=== PATIENT | female | born 2000 | race Caucasian/White ===

== ENCOUNTER 2023-03-11 19:26 | Emergency (ER) | payer MEDICAID ==
[~2023-03-11] VITALS: Ht 170.2 cm; Wt 95.0 kg
[2023-03-11 19:35] VITALS: BP 124/78; PULSE 89; RESP 18; TEMP 98.5; O2SAT 97
[2023-03-11] MEDS ORDERED: ACETAMINOPHEN 325MG TABLET PO STA (19:47)
== END 2023-03-11 21:03 | disposition home or self-care (01) ==
LOC: ER 19:26
DX: R07.89 Other chest pain (principal); F41.9 Anxiety disorder, unspecified; F32.9 Major depressive disorder, single episode, unspecified
CPT/HCPCS: 93005; 99283